=== PATIENT | male | born 1980 ===

== ENCOUNTER 2025-02-14 06:29 | Day surgery (SDC) | payer BC ==
[2025-02-14] MEDS: Lactated Ringers 1,000 ML IV SCH (06:49)
[2025-02-14] MEDS ORDERED: fentaNYL 50 MCG/ML SDV ONE (07:25)
[2025-02-14] MEDS ORDERED: Midazolam 1 MG/ML 2 ML SDV ONE (07:25)
[2025-02-14] MEDS ORDERED: Propofol 200 MG/20 ML SDV ONE (07:26)
[2025-02-14] MEDS: Ondansetron 4 MG/2 ML SDV IVPUSH ONE (08:15)
== END 2025-02-14 09:50 | disposition home or self-care (01) ==
LOC: JP.SDS 06:29
PROVIDERS: ATTEND Surgery
DX: Z12.11 Encounter for screening for malignant neoplasm of colon (principal); D12.2 Benign neoplasm of ascending colon; Z88.2 Allergy status to sulfonamides
CPT/HCPCS: 00811; 45385; J2250; J2405; J2704; J3010; J7120; 88305